=== PATIENT | female | born 1980 | race Caucasian/White ===

== ENCOUNTER 2017-02-06 09:16 | Day surgery (SDC) | payer BC, OTHER ==
[2017-02-02 10:20] VITALS: BMI 24.7
--- NOTE | 2017-02-05 10:56 | HP ---
Admitting History and Physical - Primary Care Physician PCP: iNma Elias - Admission Chief Complaint: recurrence of left breast cancer History of Present Illness: 36 year old premanapausal female S/P left total mastectomy and right nipple sparing matectomy 02/2010. 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 She had 3 positive nodes and underwent chemotherapy with response. She had radiation therapy over left implant and tamoxifen. She developed some lymphedema. She has been closely followed by Dr Figueredo and gets routine US which recently showed new left lateral 3:00 density and US core bx showed infiltrating ductal carcinoma. MRI breast showed 1 cm area of recurrence 3:00. and PET CT showed some uptake in her ovaries for which she is getting US. History Source: Patient Limitations to Obtaining History: No Limitations - Past Medical History Gastrointestinal: Yes: GERD ...LMP: 01/31/17 Psych: Yes: Depression Additional Past Medical History: left breast cancer 2010 chemo/RT/bilteral mastectomies ANDX tamoxifen - Past Surgical History Additional Past Surgical History: Bilateral mastectomies ANDX trace chatheter for left breast cancer 3+ 10 nodes invasive ductal originally and mucin final path 2010 /chemotherapy RT and tamoxifen - Smoking History Smoking history: Former smoker Have you smoked in the past 12 months: No If you are a former smoker, when did you quit?: 2009 - Alcohol/Substance Use Hx Alcohol Use: Yes (socially) Home Medications - Allergies Allergies/Adverse Reactions: Allergies Allergy/AdvReac Type Severity Reaction Status Date / Time Penicillins Allergy Swelling Verified 02/02/17 10:20 - Home Medications Home Medications: Ambulatory Orders Citalopram Hydrobromide [Celexa -] 20 mg PO DAILY 02/02/17 Omeprazole 20 mg PO DAILY 02/02/17 Family Disease History - Family Disease History Family Disease History: CA: Grandparent (pat GF prostate ca//pat GM CRC 80//mat GM lung ca 57), Father (CRC 48) Other Family History: paternal aunt Breast ca 67. maternal first cousin ovarian ca 37 Physical Examination Constitutional: Yes: Well Nourished, No Distress Breast(s): Yes: Other (bilateral total mastectomies right nipple sparing implant reconstruction radiation changes over left implant, right breast negative, left chest wall scarring changes over implant laterally, no palpable adenopathy bilaterally) Problem List - Problems (1) Local recurrence of cancer of left breast Code(s): C50.912 - MALIGNANT NEOPLASM OF UNSPECIFIED SITE OF LEFT FEMALE BREAST Assessment/Plan Left chest wall excision ,sentenel node biopsy,lymphoscintogram, exchange of implant, possible axillary node dissection, port placement
[2017-02-06] MEDS ORDERED: DEXAMETHASONE SOD PHOSPHATE 4 MG/1 ML VIAL ONE (10:30)
[2017-02-06] MEDS ORDERED: ONDANSETRON 4 MG/2 ML VIAL ONE (10:30)
[2017-02-06] MEDS ORDERED: ROCURONIUM BROMIDE 50 MG/5 ML VIAL ONE (10:31)
[2017-02-06] MEDS ORDERED: MIDAZOLAM HCL 2 MG/2 ML SINGLE DOSE VIAL ONE (10:31)
[2017-02-06] MEDS ORDERED: SCOPOLAMINE HYDROBROMIDE 1 PATCH PATCH.TD72 ONE (10:55)
[2017-02-06] MEDS ORDERED: ZOLPIDEM TARTRATE 5 MG TABLET PO PRN (11:04)
[2017-02-06] MEDS ORDERED: ONDANSETRON 4 MG/2 ML VIAL IVPB PRN (11:04)
[2017-02-06] MEDS ORDERED: ACETAMINOPHEN 325 MG TABLET (FP) PO PRN (11:04)
[2017-02-06] MEDS ORDERED: oxyCODONE HCL 5 MG TABLET PO PRN (11:04)
[2017-02-06] MEDS ORDERED: ALPRAZolam 0.25 MG TABLET PO PRN (11:07)
[2017-02-06] MEDS ORDERED: GENTAMICIN SO4 80 MG/2 ML VIAL ONE (11:12)
[2017-02-06] MEDS ORDERED: ceFAZolin SODIUM 1 GM VIAL ONE (11:12)
[2017-02-06] MEDS ORDERED: HEPARIN NA (PORCINE) 5,000 UNITS/ML 1ML VIAL ONE (11:12)
[2017-02-06] MEDS ORDERED: LIDOCAINE 1%-EPI 1:100,000 30 ML MDV IJ ONE (11:13)
[2017-02-06] MEDS ORDERED: LIDOCAINE HCL 1%, 10 MG/ML (20ML VIAL) ONE ×2 (11:13→11:15)
[2017-02-06] MEDS ORDERED: DEXTROSE 5%-0.45% SALINE 1,000 ML IV SCH (11:15)
[2017-02-06] MEDS ORDERED: BUPIVACAINE HCL/PF 0.5% (5MG/ML) 10 ML VIAL ONE (11:15)
[2017-02-06] MEDS ORDERED: PROPOFOL 20 ML ONE ×5 (11:21→12:47)
[2017-02-06] MEDS ORDERED: ISOSULFAN BLUE 10 MG/ML VIAL SQ ONE (11:38)
[2017-02-06] MEDS ORDERED: ACETAMINOPHEN INJECTION 100 ML IVPB ONE (11:45)
[2017-02-06] MEDS ORDERED: diphenhydrAMINE HCL 25 MG CAPSULE (FP) PO ONE (16:00)
[2017-02-06] MEDS: HYDROmorphone HCL 2 MG TABLET PO PRN ×2 (16:07→20:01)
[2017-02-06] MEDS: CLINDAMYCIN IVPB 300 MG in DEXTROSE 5%-WATER - 48 ML IVPB SCH (18:03)
[2017-02-07] MEDS: CLINDAMYCIN IVPB 300 MG in DEXTROSE 5%-WATER - 48 ML IVPB SCH ×2 (01:36→09:10)
[2017-02-07] MEDS: HYDROmorphone HCL 2 MG TABLET PO PRN ×3 (04:22→07:46)
[2017-02-07 05:58] VITALS: BP 102/42; PULSE 54; TEMP 97.8
--- NOTE | 2017-02-07 08:52 | PN ---
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 and right life port insertion History of Present Illness: patient 's pain is managed with dilaudid ready for discharge today no nausea or vomiting - Current Medication List Current Medications: Active Medications Acetaminophen (Tylenol -) 650 mg PO Q4H PRN PRN Reason: FEVER OR PAIN Alprazolam (Xanax -) 0.25 mg PO DAILY PRN PRN Reason: ANXIETY Citalopram Hydrobromide (Celexa -) 20 mg PO DAILY DELMY Fentanyl (Sublimaze Injection -) 50 mcg IVPUSH [id number] PRN PRN Reason: PAIN Stop: 02/09/17 15:19 Hydromorphone HCl (Dilaudid -) 2 mg PO Q4HWA PRN PRN Reason: PAIN Last Admin: 02/07/17 07:46 Dose: 2 mg Dextrose/Sodium Chloride (D5-1/2ns -) 1,000 mls @ 100 mls/hr IV ASDIR DELMY Last Admin: 02/06/17 15:30 Dose: Not Given Clindamycin Phosphate 300 mg/ (Dextrose) 50 mls @ 104 mls/hr IVPB Q8H-IV DELMY Last Admin: 02/07/17 01:36 Dose: 104 mls/hr Ondansetron HCl (Zofran Injection) 4 mg IVPB Q6H PRN PRN Reason: NAUSEA Pantoprazole Sodium (Protonix -) 20 mg PO DAILY DELMY Zolpidem Tartrate (Ambien -) 5 mg PO HS PRN PRN Reason: INSOMNIA Last Admin: 02/06/17 22:03 Dose: 5 mg - Objective Vital Signs: Vital Signs Temperature 97.8 F 02/07/17 05:57 Pulse Rate 54 L 02/07/17 05:57 Respiratory Rate 18 02/07/17 05:57 Blood Pressure 102/42 02/07/17 05:57 O2 Sat by Pulse Oximetry (%) 100 02/07/17 05:57 Constitutional: Yes: Well Nourished, No Distress Breast(s): Yes: Other (left flap viable minimal echymosis near suture line incision intact steristrips in place) Wound/Incision: Yes: Other (Right port in place incision intact no signs of infection) Problem List - Problems (1) Local recurrence of cancer of left breast Code(s): C50.912 - MALIGNANT NEOPLASM OF UNSPECIFIED SITE OF LEFT FEMALE BREAST Assessment/Plan discharge patient home today with Vicodin ES and Cipro no shower follow up next week with dr Cramer and Dr ravi empty and record stella output
[2017-02-07] MEDS ORDERED: PT OWN MED DRAWER 7, Y5N ONE (08:56)
[2017-02-07] MEDS ORDERED: PATIENT'S OWN MEDICATION (NON-FORMULARY) (Omeprazole 20 MG) PO SCH (10:00)
[2017-02-07] MEDS ORDERED: PANTOPRAZOLE 20 MG TABLET (FP) PO SCH (10:00)
[2017-02-07] MEDS ORDERED: CITALOPRAM HYDROBROMIDE 20 MG TABLET (FP) PO SCH (10:00)
--- NOTE | 2017-02-07 10:58 | PN ---
Progress Note (short form) - Note Progress Note: S/P L sentinel node Bx/ porthcath/breast reconstruction. no complaints of pain she is being d/c home. NO anesthesia related complication.
--- NOTE | 2017-02-07 15:31 | OP ---
DATE OF PROCEDURE: 02/06/2017 PROCEDURE: 1. Left chest wall excision with exchange and revision of her implant reconstruction for an inside sales account manager by plastic surgery. 2. Right subclavian vein single lumen Port-A-Cath insertion for chemotherapy. PREOPERATIVE DIAGNOSIS: History of left breast cancer status post bilateral total mastectomies and implant reconstructions, now with recurrent left chest wall breast cancer. POSTOPERATIVE DIAGNOSIS: History of left breast cancer status post bilateral total mastectomies and implant reconstructions, now with recurrent left chest wall breast cancer. ANESTHESIA: Laryngeal mask airway anesthesia PRIMARY SURGEON: Sterling Elias MD EYELET MAKER: BENJAMIN Hobbs PRIMARY SURGEON FOR THE REMOVAL OF IMPLANT AND EXCHANGE FOR FOOD SERVICES COORDINATOR: Sterling Cramer MD COMPLICATIONS: There were no complications. ESTIMATE BLOOD LOSS: 10-20 mL BRIEF HISTORY: The patient is a 36-year-old premenopausal white female with English, [place] and [place]ag[place] descent. She has a family history of a paternal aunt with breast cancer at age 67 and a maternal cousin who had ovarian cancer at age 37. Her father had colon cancer at age 48, and paternal grandfather had colon cancer in his 80s. The patient was diagnosed with a lateral left breast cancer in 2009 with positive axillary lymph nodes, which was an invasive duct cancer, which was ER/CT positive and HER2/egri negative. She underwent neoadjuvant chemotherapy and had eggs harvested preoperatively for fertility reasons. She BRCA-tested negative at that time. She underwent bilateral mastectomies in February 2010 and had a left axillary dissection. There was only some mucin found in the left breast at the time of the mastectomy, and she had 3 out of 10 positive axillary lymph nodes. She had radiation over the left implant and was placed on tamoxifen. The patient is doing well; however, developed some left arm lymphedema and had an unidentified mass on ultrasound in the left breast 3 o'clock region. An ultrasound core biopsy showed a recurrent invasive duct cancer, which was ER/CT positive. The patient underwent a PET scan and an MRI showing localized disease just over the area of the biopsy. She was advised an ongoing chest wall excision and exchange of implant, and the medical oncologist asked for a placement of a Port-A-Cath for chemotherapy. DESCRIPTION OF PROCEDURE: She was brought to the operating room on February 06, 2017, and a site verification was made, and informed consent was obtained. She was marked preoperatively by the plastic surgeon. She did undergo a lymphoscintigraphy for attempted sentinel lymph node biopsy, but the dye did not travel, so it was decided not to do any lymph node evaluation given her pre-existing lymphedema and the fact that she already had a lymph node dissection. The patient was brought into the operating room and laid on the OR table in the supine position. Both breasts were sterilely prepped and draped in the usual fashion as well as the right upper chest wall and neck. The right arm was tucked at her side. The left arm was placed on an arm board. The chest wall excision was first approached. We did remove the tissue along the lateral aspect of the left implant with the area of skin through an elliptical incision. We used a previous radial extension of her previous surgery. Dissection was undertaken all the way down to the implant, and a full-thickness with skin all the way down through the capsule of the implant including a prior-placed AlloDerm was excised as specimen. The specimen was oriented with a long lateral short superior suture. There had been no clip previously placed, and I could feel the density within the specimen, so it was placed in formalin and sent to pathology as specimen. It was felt it might be slightly close to the margin, so a separate inferior margin was taken with a suture marking biopsy cavity side. Hemostasis was achieved. At this point, Dr. Cramer became the primary surgeon, and he took the implant out and will dictate an inside sales account manager reconstruction on the left. At this point, I changed gloves and gown and moved to the right side of the patient for placement of the single-lumen Port-A-Cath chamber. The patient was placed in a slight Trendelenburg position. The right subclavian vein was easily found using a Seldinger technique, and a wire was threaded into the superior vena cava under fluoroscopy. The wire was clipped to the drape. Her previous Port-A-Cath incision was opened, and an infraclavicular pocket was fashioned. The Port-A-Cath chamber was attached to the catheter, which was cut to the appropriate length and placed in the infraclavicular pocket. It was secured in place using 2 separate Prolene sutures. At this point, the tear-away sheath introducer was placed over the wire under fluoroscopy without difficulty, and the dilator was removed as well as a wire. The catheter was threaded down through the tear-away sheath, and the tear-away sheath was torn away leaving the catheter in good position, and the superior vena cava under fluoroscopy occurred. There was excellent blood return from the Port-A-Cath, and it was flushed with first dilute heparin at 10 units per mL, then 1 mL of 1000 units/mL heparin was instilled into the Port-A-Cath chamber. The wound was closed using interrupted 3-0 deep dermal Vicryl suture and a running 4-0 subcuticular Biosyn suture. Dermabond was placed over the wound. The closure and exchange of the implant for an inside sales account manager on the left will be dictated separately by Dr. Cramer. She was hemodynamically stable throughout. The patient will be recovered and will be admitted for a 24-hour short stay admission due to some history of postoperative nausea. She should follow up again in 1 week for a formal wound pathology check. STERLING ELIAS M.D. [id number]
--- NOTE | 2017-02-11 19:37 | OP ---
DATE OF OPERATION: DATE OF DICTATION: 02/11/2017 SURGEON: Sterling Cramer MD BREASTFEEDING PROGRAM COORDINATOR SURGEON: BENJAMIN Silver This is a combined dictation with Dr. Sterling Elias, who will be dictating under separate cover. PREOPERATIVE DIAGNOSES: 1. Recurrent breast cancer of left breast. 2. Absent left breast. 3. Recurrent cancer with excision. OPERATIVE PROCEDURE: 1. Capsulectomy and removal of left breast implant, number [id number]. 2. Reconstruction with other technique, number 88234. 3. Insertion of left breast tissue fountain attendant for reconstruction, number [id number]. 4. Placement of acellular dermal matrix for breast reconstruction, number 51404. POSTOPERATIVE DIAGNOSES: 1. Recurrent breast cancer of left breast. 2. Absent left breast. 3. Recurrent cancer with excision. OPERATIVE INDICATION: The patient is a young woman who presented with a recurrent breast cancer on the left side. She was brought to the operating room by Dr. Sterling Elias for definitive procedure for excision of tissue through the skin and down deep into the muscular layers. A separate dictation by Dr. lEias will be performed under separate cover. The patient agreed to the planned procedure. OPERATIVE PROCEDURE IN DETAIL: The patient was taken to the operating room by Dr. Elias. She was placed supine in the operating room table. Both arms were extended and padded. Venodyne boots were placed. At this point, after prepping and draping, Dr. Elias performed an extirpation of the recurrent cancer of the left breast including deep tissues down to the underlying implant with muscular excision. At this point, I removed the left breast implant, which was sent for pathologic diagnosis. Upon completion of the procedure by Dr. Elias, a large open wound of the left chest wall was visualized and reconstruction was required. At first, the wounds were copiously irrigated, and capsulotomy was performed on the lower pole of the breast in order to expand the lower pole of the breast after previous radiation therapy. This was carried out with optical magnification and lighted retractor using electrocautery on the inframammary side. Once this was performed, a tissue fountain attendant was selected for future expansion. An Mandelbrot Projectan [id number]-13-[id number] 500 mL tissue fountain attendant was brought in to the field in sterile fashion and confirmed placement was carried out. The tabbed tissue fountain attendant was sutured into place using 3-0 chromic sutures in multiple locations and ensured in a lower position to expand the lower pole of the breast. The reconstruction proceeded after expansion of 300 mL intraoperatively with sterile saline through a closed system. A piece of AlloDerm material was brought into the field and then sutured to the deep tissues over the tissue fountain attendant. This was attached to the defect in the muscle superiorly and inferiorly to the deep tissues of the chest wall. When this was in place, the skin and subcutaneous tissue was advanced and closed in reconstructive fashion and closed using 3-0 PDS suture on the deep tissue, 3-0 in a deep dermal fashion, and 4-0 Biosyn in subcuticular fashion. The patient tolerated the procedure well. Dry sterile dressing with a compression were placed. She was placed in a Surgi-Bra, awakened, extubated, and transferred to the recovery room in satisfactory condition. She tolerated the procedure well. STERLING CRAMER M.D. RENAY/[id number]
--- NOTE | 2017-02-12 15:58 | PATH ---
Surgical Pathology Report Patient Name: DAVID MORA [facility]. Rec. #: [id number] /Age/Gender: 1980 (Age: 36) / F Account: [id number] Location: [facility] Taken: 02/07/2017 Received: 02/07/2017 Reported: 02/12/2017 Physicians: Monique Soriano Specimen(s) Received A: LEFT BREAST WIDE EXCISION B: LEFT BREAST INFERIOR MARGIN C: LEFT BREAST EXPLANT Clinical History Recurrent left breast cancer positive biopsy Final Diagnosis A. LEFT CHEST WALL, WIDE EXCISION: MODERATELY DIFFERENTIATED INVASIVE DUCTAL CARCINOMA, MARIAH GRADE 2 OF 3 (TUBULE SCORE 2 OF 3, NUCLEAR GRADE 2 OF 3, MITOTIC SCORE 2 OF 3, TOTAL 6 OF 9), MEASURING 7 MM IN GREATEST DIMENSION. INVASIVE CARCINOMA IS LESS THAN 1 MM FROM THE DEEP MARGIN OF EXCISION, AND ALL MARGINS OF EXCISION ARE FREE OF CARCINOMA. CHANGES CONSISTENT WITH PRIOR BIOPSY SITE PRESENT. NO DUCTAL CARCINOMA IN SITU, LOBULAR CARCINOMA IN SITU, OR LYMPH-VASCULAR INVASION IDENTIFIED. NO INVOLVEMENT OF OVERLYING SKIN IDENTIFIED. BACKGROUND TISSUE SHOWS BENIGN ADIPOSE TISSUE AND BENIGN FIBROUS TISSUE WITH NO BREAST EPITHELIAL ELEMENTS IDENTIFIED. B. LEFT CHEST WALL, INFERIOR MARGIN, EXCISION: BENIGN FIBROFATTY TISSUE. C. SOIL EXPERT, LEFT BREAST, REMOVAL: BREAST IMPLANT (GROSS ONLY). Comment: Immunohistochemical stains for p63 and SMM-HC performed and interpreted at [facility] show loss of the myoepithelial cell layer in the area of carcinoma. Also see [id number]. Comments Breast Invasive Carcinoma: Surgical Pathology Cancer Case Summary Based on AJCC/UICC TNM, 7th edition Procedure _X__ Excision without image-guided localization Specimen Laterality _X__ Left Tumor Size: Size of Largest Invasive Carcinoma Greatest dimension of largest focus of invasion over 1 mm: 7 mm Tumor Focality _X__ Single focus of invasive carcinoma Macroscopic and Microscopic Extent of Tumor Skin _X__ Invasive carcinoma does not invade into the dermis or epidermis Nipple _X__ Not applicable (excisions less than total mastectomy) Ductal Carcinoma In Situ (DCIS) _X__ No DCIS is present Histologic Type of Invasive Carcinoma : _X__ Invasive carcinoma of no special type (ductal, not otherwise specified) Histologic Grade: (Mariah Histologic Score) Tubular Differentiation _X__ Score 2 Nuclear Pleomorphism _X__ Score 2 Mitotic Rate _X__ Score 2 Overall Grade _X__ Grade 2: scores of 6 or 7 (moderately differentiated) Margins _X__ Margin(s) close to (< 1 mm) invasive carcinoma: DEEP Lymph-Vascular Invasion _X__ Not identified Lymph Nodes Total number of lymph nodes examined (sentinel and nonsentinel): 0 Number of sentinel lymph nodes examined: 0 Number of lymph nodes with macrometastases ( > 2 mm): 0 Number of lymph nodes with micrometastases (>0.2 mm to 2 mm and/or >200cells):0 Number of lymph nodes with isolated tumor cells (=0.2 mm and =200 cells): 0 Extranodal Extension _X__ Not applicable Pathologic Staging (pTNM) Primary Tumor (Invasive Carcinoma): rpT1b Regional Lymph Nodes (pN): pNX Biomarker Studies Results of ER and TN studies performed on this specimen (block #A1) at [facility] are as follows: ER (clone [id number] mouse monoclonal antibody by [employer]): >95% nuclear staining with strong intensity (Positive). TN (clone16 mouse monoclonal antibody by [employer]) : ~70% nuclear staining with moderate intensity (Positive). Results of Her2 (IHC) & Ki-67 studies performed on this specimen (block #A1) at [facility] [place], [place] ([id number]) are as follows: Her2 IHC (EP3 from [employer], formerly known as [id number], using [employer] Polymer Refine detection kit): 2+ Equivocal Ki67: ~25% (Intermediate proliferative index) Results of Her2 studies will be reported separately in an addendum. Positive and negative controls (internal if applicable) show appropriate results. Formalin fixation and cold ischemic times are within current ASCO/CAP recommendations for ER, TN and Her2 testing. Electronically Signed Mata Nunes M.D. Addendum Reported: 02/14/2017 Addendum Diagnosis Results of Her2 FISH studies performed on block A1 at [facility] [place], [place] ([id number]) are as follows: Her2: 5.5 CEP17: 1.9 Ratio: 2.9 Interpretation: POSITIVE Robert Mosqueda M.D. Gross Description A. Received in formalin labeled "left breast wide excision," is a 4.7 x 3.0 x 1.2 cm irregular portion of fibroadipose tissue with a short suture marking the superior aspect and a long suture marking the lateral aspect of the specimen, per the surgeon. The anterior surface displays a 3.2 x 1.3 cm felton, elliptical portion of skin. The deep margin displays a fibrous capsule. There is no needle localization wire present. The specimen is inked of follows: Superior blue; inferior green; lateral red; medial yellow; deep (fibrous capsule) black. The specimen is serially sectioned from medial to lateral. Sectioning reveals a 0.5 x 0.4 x 0.4 cm focus of indurated fibrous tissue associated with a hemorrhagic biopsy site. The indurated focus abuts the fibrous capsule (deep margin). The remaining breast parenchyma is unremarkable. Also received within the same container are 3 felton fragments of unoriented, undesignated fibrous capsule. The specimens range from 1.8 x 1.2 x 0.5 cm to 2.5 x 1.2 x 0.6 cm. Sectioning reveals focal calcifications. No definitive masses are identified within the separate fragments. Edge Blacker sections are submitted in 9 cassettes as follows: 1-3-mass and previous biopsy site (each section displays skin, deep margin, superior and inferior margins); 4-2-vkekbjocby mechanical service representative tissue (each section displays skin, deep margin, superior and inferior margins); 7-medial margin; 8-lateral margin; 9-mechanical service representative separately received fragments of fibrous capsule, following decalcification. Total formalin fixation time: Approximately 24 hours B. Received in formalin labeled "left breast inferior margin," is a 1.8 x 1.4 x 0.5 cm irregular portion of fibroadipose tissue with a suture marking the biopsy cavity side, per the surgeon. The new margin is inked red and the specimen is serially sectioned. The specimen is entirely submitted in 2 cassettes. C. Received fresh labeled "left breast explant," is a 13 cm in diameter x 3.5 cm in depth clear, rubbery, disc-shaped object, consistent with a breast implant. No soft tissue is present. No sections are submitted, gross only. 02/07/2017 [facility]02/07/2017
== END 2017-02-07 10:52 | disposition home or self-care (01) ==
LOC: FASU 09:16 → FM/S 14:40 → FASU 02-07 10:52
PROVIDERS: ATTEND Surgery Surgical Oncology
PROC: 0HHU0NZ Insertion of Tissue Expander into Left Breast, Open Approach (ICD-10-PCS; 2017-02-06)
PROC: 0HHU0NZ Insertion of Tissue Expander into Left Breast, Open Approach (ICD-10-PCS; 2017-02-06)
PROC: 02HV33Z Insertion of Infusion Device into Superior Vena Cava, Percutaneous Approach (ICD-10-PCS; principal; 2017-02-06 12:14)
PROC: 0HPU0JZ Removal of Synthetic Substitute from Left Breast, Open Approach (ICD-10-PCS; 2017-02-06 12:14)
PROC: 0HRU07Z Replacement of Left Breast with Autologous Tissue Substitute, Open Approach (ICD-10-PCS; 2017-02-06 12:14)
DX: C50.912 Malignant neoplasm of unspecified site of left female breast (principal); Z90.13 Acquired absence of bilateral breasts and nipples; Z80.3 Family history of malignant neoplasm of breast; Z92.21 Personal history of antineoplastic chemotherapy; Z80.0 Family history of malignant neoplasm of digestive organs; K21.9 Gastro-esophageal reflux disease without esophagitis; F32.9 Major depressive disorder, single episode, unspecified
CPT/HCPCS: 71010-TC; 78195-TC; 84703; 87081; 88300-TC; 88305-TC; 88307-TC; 88341-TC; 88342-TC; 94760; A9541; J1644

== ENCOUNTER 2017-09-20 11:49 | Day surgery (SDC) | payer OTHER ==
[2017-09-18 12:43] VITALS: BMI 27.4
[2017-09-20] MEDS ORDERED: LIDOCAINE 1%/EPI 1:100000 (20 ML MULTI DOSE VIAL) ONE (14:43)
[2017-09-20] MEDS ORDERED: ceFAZolin SODIUM 1 GM VIAL ONE (14:43)
[2017-09-20] MEDS ORDERED: GENTAMICIN SO4 80 MG/2 ML VIAL ONE (14:43)
[2017-09-20] MEDS ORDERED: PROPOFOL 20 ML ONE ×6 (14:53→15:56)
[2017-09-20] MEDS ORDERED: MIDAZOLAM HCL 2 MG/2 ML SINGLE DOSE VIAL ONE (14:54)
[2017-09-20] MEDS ORDERED: SCOPOLAMINE HYDROBROMIDE 1 PATCH PATCH.TD72 ONE (15:04)
[2017-09-20] MEDS ORDERED: LIDOCAINE 1%/EPI 1:100000 (50 ML MULTI DOSE VIAL) INF ONE (15:56)
[2017-09-20] MEDS ORDERED: oxyCODONE HCL 5 MG TABLET PO PRN (17:07)
[2017-09-20] MEDS ORDERED: ONDANSETRON 4 MG/2 ML VIAL IVPUSH PRN (17:07)
[2017-09-20] MEDS ORDERED: PROMETHAZINE HCL 25 MG/1 ML VIAL IVPB PRN (17:07)
[2017-09-20] MEDS ORDERED: LACTATED RINGERS SOLUTION 1,000 ML IV SCH (17:15)
[2017-09-20] MEDS ORDERED: PROMETHAZINE HCL 25 MG/1 ML VIAL ONE (19:22)
[2017-09-20] MEDS ORDERED: oxyCODONE HCL 5 MG TABLET ONE (19:23)
[2017-09-20] MEDS: oxyCODONE HCL 5 MG TABLET PO PRN (23:35)
[2017-09-21] MEDS: oxyCODONE HCL 5 MG TABLET PO PRN ×2 (03:49→07:49)
[2017-09-21 10:31] VITALS: BP 97/58; PULSE 72; TEMP 98.1
--- NOTE | 2017-09-25 13:12 | PATH ---
Surgical Pathology Report Patient Name: DAVID MORA [facility]. Rec. #: [id number] /Age/Gender: 1980 (Age: 37) / F Account: [id number] Location: [facility] Taken: 09/20/2017 Received: 09/20/2017 Reported: 09/25/2017 Physicians: Yannick Cramer Specimen(s) Received A: RIGHT BREAST IMPLANT B: LEFT BREAST IMPLANT C: LEFT BREAST CAPSULE Clinical History History of breast cancer Final Diagnosis A. BREAST, RIGHT, IMPLANT, REMOVAL: BREAST PROSTHESIS. MACROSCOPIC DIAGNOSIS. B. BREAST, RIGHT, LEFT, REMOVAL: BREAST PROSTHESIS. MACROSCOPIC DIAGNOSIS. C. BREAST CAPSULE, LEFT, EXCISION: DENSE FIBROUS TISSUE CONSISTENT WITH FIBROUS CAPSULE, FIBROADIPOSE TISSUE AND SKELETAL MUSCLE. NO CARCINOMA IDENTIFIED. Electronically Signed Shyanne Matias M.D. Gross Description A. Received fresh labeled "right breast implant," is a 13 cm in diameter x 3.5 cm in depth clear, rubbery breast implant. No soft tissue is present. No sections are submitted, gross only. B. Received fresh labeled "left breast tissue bio medical technician," is a 13.0 x 11.0 x 5.0 cm felton, irregular device, consistent with a tissue bio medical technician. No soft tissue is present. No sections are submitted, gross only. C. Received in formalin labeled "left breast capsule," is a 3.5 x 1.3 x 0.6 cm felton, irregular portion of fibrous tissue with attached suture material, consistent with a fibrous capsule. No masses identified. Paper Slitter sections are submitted in one cassette. 09/21/2017 [facility]09/21/2017
--- NOTE | 2017-09-26 09:42 | OP ---
DATE OF OPERATION: 09/20/2017 SURGEON: Sterling Cramer MD [employer]TER SURGEON: Chetan Buenrostro PA-C PREOPERATIVE DIAGNOSES: 1. 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 2. Asymmetry of reconstructed chest wall. 3. Personal history of radiation therapy and recurrent breast cancer. 4. Malposition of breast implants with mechanical complication. POSTOPERATIVE DIAGNOSES: 1. 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 2. Asymmetry of reconstructed chest wall. 3. Personal history of radiation therapy and recurrent breast cancer. 4. Malposition of breast implants with mechanical complication. OPERATIVE INDICATION: Patient is a young woman who previously underwent mastectomy for breast cancer, underwent radiation therapy, and then had a recurrence of her breast cancer. She was brought back previously to the operating room by Dr. Sterling Elias for surgical removal of the recurrence, and at that time, had reconstructive temporary procedure in order to stabilize the situation. The patient has also undergone chemotherapy on multiple occasions. She is brought back to the operating room today for the required reconstructive procedure for breast cancer, symmetry, and reconstruction. The risks and benefits of surgical versus nonsurgical alternatives as well as the material complications were described to the patient on multiple occasions preoperatively. She agreed to the planned procedure. OPERATIVE PROCEDURES: 1. Right breast reconstruction with other technique. 2. Left breast reconstruction with other technique. 3. Capsulectomy, removal and replacement of right breast implant. 4. Capsulectomy, removal and replacement of left breast implant. OPERATIVE PROCEDURE IN DETAIL: The patient was taken to the operating room, and after induction of general anesthesia in the supine position, both arms were extended and padded. Venodyne boots were placed. When this was accomplished, attention was turned to prepping the entire chest wall, abdomen and flanks with ChloraPrep solution over its entire extent, and then, sterile drapes were placed and time-out achieved. At this point, attention was turned to the mastectomy scars. These were injected with 1% local lidocaine anesthesia with 1:100,000 epinephrine. After allowing topical anesthesia and hemostasis, attention was then turned to the incisions. An incision was made down through the skin into the subcutaneous tissue on the right breast through the scar in the inframammary fold down to underlying capsule. The capsule was then opened and tissue removed from the capsule and sent for pathologic diagnosis. Copious irrigation of the wound was carried out, and implant also was removed and sent for pathologic diagnosis. Because of the asymmetry, all tissue was sent for pathologic diagnosis to rule out breast cancer as she had a previous recurrence. After this was accomplished, before attending to the left recurrent cancerous breast, implant was chosen for the right side. After copious irrigation with triple antibiotic solution in the pocket, a Natrell Inspira Cohesive Breast Implant, style SCF 520 mL was placed into the right breast pocket. This pocket was then closed with interrupted and running sutures with 2-0 PDS suture on the deep tissue, 3-0 Biosyn on the deep dermis, and 4-0 in a subcuticular fashion before opening the left side. After this was accomplished, attention was turned to the left breast. An incision was also made down through the mastectomy scar down through the subcutaneous tissue down to the deep areas of the chest wall. The implant on the left breast was then removed and sent for pathologic diagnosis, and the capsule was also excised and removed and inspected for recurrences. No evidence of recurrence was seen within the capsules themselves, and all tissues appeared to be intact. After copious irrigation of the wound, attention was turned to the flanks. An incision was made bilaterally for harvest of subcutaneous tissue for reconstructive purposes. At this point, an incision was made down through the skin to the subcutaneous tissue down to the deep area of the rectus fascia and lateral oblique area. Tissue was then harvested, transferred to the back table and prepared, ready for reconstructive purposes. Donor sites were closed with interrupted and running sutures in the usual fashion. Attention was turned back to the left breast. This tissue was then transferred to the left breast in a superior, medial, central, and lateral portions of the left breast, and also through the incision in the left breast, tissue was transferred to the medial, superior, and inferior portion of the right breast independently. After symmetry was seen in the subcutaneous tissue, an implant was chosen for the left breast for replacement. At this point, a Natrell Inspira Cohesive Breast Implant, style SCF 605 mL was placed into the left breast pocket. Because of asymmetries, this required different sized implants because of the recurrence and lack of tissue. After this was corrected, good symmetry was seen in the sitting position. The wound was then again copiously irrigated with triple antibiotic solution. All implants were placed through a Roper Funnel with a no-touch technique. The wounds were then closed using 2-0 PDS suture on the deep tissue, 3-0 Biosyn on the deep dermal fashion, and subcuticular suture with 4-0 Biosyn sutures. Patient was placed in the sitting position. Good symmetry was seen. All wounds were closed with Dermabond and Steri-Strip dressings, and she tolerated the procedure well. STERLING CRAMER M.D. RENAY/[id number]
== END 2017-09-21 10:45 | disposition home or self-care (01) ==
LOC: FASU 11:49 → FM/S 20:00 → FASU 09-21 10:45
PROVIDERS: ATTEND Plastic Surgery
PROC: 0HPT0JZ Removal of Synthetic Substitute from Right Breast, Open Approach (ICD-10-PCS; 2017-09-20)
PROC: 0HRV0JZ Replacement of Bilateral Breast with Synthetic Substitute, Open Approach (ICD-10-PCS; 2017-09-20)
PROC: 0HRV07Z Replacement of Bilateral Breast with Autologous Tissue Substitute, Open Approach (ICD-10-PCS; principal; 2017-09-20 15:33)
PROC: 0HPU0JZ Removal of Synthetic Substitute from Left Breast, Open Approach (ICD-10-PCS; 2017-09-20 15:33)
DX: M95.4 Acquired deformity of chest and rib (principal); Z90.13 Acquired absence of bilateral breasts and nipples; N65.0 Deformity of reconstructed breast; Z85.3 Personal history of malignant neoplasm of breast; Z92.3 Personal history of irradiation; T85.42XA Displacement of breast prosthesis and implant, initial encounter; Y83.8 Other surgical procedures as the cause of abnormal reaction of the patient, or of later complication, without mention of misadventure at the time of the procedure; Y92.89 Other specified places as the place of occurrence of the external cause
CPT/HCPCS: 84703; 94760